=== PATIENT | female | born 1955 | race Caucasian/White ===

== ENCOUNTER 2018-05-18 20:23 | Inpatient (IN) | payer MEDICARE, OTHER ==
[~2018-05-18] VITALS: Ht 162.6 cm; Wt 77.6 kg
[~2018-05-18 20:23] MED LIST: ATOR80 PO; CEPH500 PO; FURO20 PO; IBUP800 PO; LEVSOD88 PO; LISI5 PO; NEBI5; NEBI5 PO; RXTRAM50 PO; TRAM50 PO; WARF5 PO
[2018-05-18] MEDS ORDERED: METO25ER PO (20:38)
[2018-05-18] MEDS ORDERED: Magnesium500 MG PO ×2 (20:40→23:40)
[2018-05-18] MEDS ORDERED: TURMERIC500 M2 PO (20:41)
[2018-05-18 20:56] LABS: BASOPHILS ABSOLUTE AUTO 0.05 K/mm3 (0.00-0.23); BASOPHILS PERCENT AUTO 1 % (0-2); EOSINOPHILS ABSOLUTE AUTO 0.24 K/mm3 (0.00-0.68); EOSINOPHILS PERCENT AUTO 2 % (0-6); Hematocrit 43.1 % (33.0-51.0); Hemoglobin 14.1 g/dL (11.5-16.0); IMMATURE GRAN ABSOLUTE AUTO 0.02 K/mm3 (0.00-0.10); IMMATURE GRAN PERCENT AUTO 0 % (0-1); LYMPHOCYTES ABSOLUTE AUTO 3.51 K/mm3 (0.84-5.20); LYMPHOCYTES PERCENT AUTO 35 % (21-46); MONOCYTES ABSOLUTE AUTO 0.92 K/mm3 (0.16-1.47); MONOCYTES PERCENT AUTO 9 % (4-13); Mean Corpuscular HGB 32.3 pg (26.0-34.0); Mean Corpuscular HGB Conc 32.7 g/dL (31.5-36.5); Mean Corpuscular Volume 99 fL (80-100); Mean Platelet Volume 9.6 fL (9.1-12.4); NEUTROPHILS PERCENT AUTO 53 % (41-73); Platelet Count 267 K/mm3 (150-400); RDW Coefficient Variation 12.4 % (11.7-14.2); Red Blood Cell Count 4.37 M/mm3 (3.80-5.20); White Blood Cell Count 10.04 K/mm3 (4.00-11.30)
[2018-05-18 21:11] LABS: Albumin, Blood 3.7 g/dL (3.4-5.0); Bilirubin, Total 0.3 mg/dL (0.1-1.0); Bun/Creatinine Ratio 11.7 (12.0-20.0); Calcium, Blood 9.7 mg/dL (8.5-10.1); Creatinine, Blood 1.2 mg/dL (0.40-1.00); Globulin, Blood 3.7 g/dL (2.2-4.0); Potassium, Blood 3.8 mmol/L (3.5-5.5); Total Protein, Blood 7.4 g/dL (6.4-8.2); Troponin I 0.024 ng/mL (0.000-0.040)
[2018-05-19 03:37] LABS: Bun/Creatinine Ratio 15.3 (12.0-20.0); Calcium, Blood 9.1 mg/dL (8.5-10.1); Creatinine, Blood 1.11 mg/dL (0.40-1.00); Potassium, Blood 3.9 mmol/L (3.5-5.5)
[2018-05-19 13:27] LABS: International Normalized Ratio 1.04; Prothrombin Time Results 10.7 Sec (9.7-11.5)
[2018-05-20 05:07] LABS: Albumin, Blood 3.2 g/dL (3.4-5.0); Anion Gap 8 mmol/L (6-16); Blood Urea Nitrogen 17 mg/dL (8-24); Bun/Creatinine Ratio 14.9 (12.0-20.0); CO2, Blood 26 mmol/L (21-32); Calcium, Blood 8.9 mg/dL (8.5-10.1); Chloride, Blood 111 mmol/L (98-108); Creatinine, Blood 1.14 mg/dL (0.40-1.00); Glomerular Filtration Rate 51 (60-); Glucose, Blood 80 mg/dL (70-99); Phosphorus, Blood 3.7 mg/dL (2.5-4.9); Potassium, Blood 4.4 mmol/L (3.5-5.5); Sodium, Blood 145 mmol/L (136-145)
[2018-05-20] MEDS ORDERED: Aspir-Trin325 MG PO (15:41)
[2018-05-20] MEDS ORDERED: FAMO20 PO (15:42)
[2018-05-20] MEDS ORDERED: CLOP75 PO (15:42)
== END 2018-05-20 16:54 | disposition home or self-care (01) | DRG 281 ==
LOC: ER 20:23 → MEDS 20:24 → PCU 05-19 12:26 → MEDS 05-19 12:27 → PCU 05-19 15:38
PROVIDERS: Emergency Medicine; Family Medicine; Nurse Practitioner Acute Care
PROC: B2111ZZ Fluoroscopy of Multiple Coronary Arteries using Low Osmolar Contrast (ICD-10-PCS; principal; 2018-05-19)
DX: I21.4 Non-ST elevation (NSTEMI) myocardial infarction (principal); I50.20 Unspecified systolic (congestive) heart failure; I13.0 Hypertensive heart and chronic kidney disease with heart failure and stage 1 through stage 4 chronic kidney disease, or unspecified chronic kidney disease; Z87.891 Personal history of nicotine dependence; Z95.5 Presence of coronary angioplasty implant and graft; E03.9 Hypothyroidism, unspecified; N18.3 Chronic kidney disease, stage 3 (moderate); Z85.3 Personal history of malignant neoplasm of breast; Z79.82 Long term (current) use of aspirin; I25.5 Ischemic cardiomyopathy; I25.119 Atherosclerotic heart disease of native coronary artery with unspecified angina pectoris; K57.90 Diverticulosis of intestine, part unspecified, without perforation or abscess without bleeding
CPT/HCPCS: 36415; 71046; 80048; 80053; 80069; 83880; 84484; 85025; 85610; 85730; 93005; 93010; 93454; 99152; 99153; 99285-25; C1769; C1894; C8929; J1644; J2250; J3010; J3246; J7030; Q9957; Q9967

== ENCOUNTER 2019-05-24 10:25 | Day surgery (SDC) | payer MEDICARE, OTHER ==
[~2019-05-24] VITALS: Ht 165.1 cm; Wt 77.7 kg
[~2019-05-24 10:25] MED LIST changes: +Aspir 8181 MG PO; +Aspir-Trin325 MG PO; +CLOP75 PO; +CO Q10100 MG PO; +FAMO20 PO; +METO25ER PO; +Magnesium500 MG PO; +NITR.4SL SL; +TUMERIC; +TURMERIC500 M2 PO; +[UNRECOGNIZED DRUG - OTHER] PO
--- NOTE | 2019-05-24 12:43 | NUR ---
PT ARRIVED BACK TO RECOVERY ROOM IN [facility]. RIGHT RADIAL SITE SOFT NON-TENDER WITH NO HEMATOMA AND NO PUSATILE BLEEDING AND WRIST BOARD IN PLACE. CALL LIGHT IN REACH. PT DENIES CHEST PAIN.
[2019-05-24] MEDS ORDERED: OMEPRAZOLE20 MG PO (13:42)
--- NOTE | 2019-05-24 13:46 | NUR ---
PT EATING LUNCH.
== END 2019-05-24 15:15 | disposition home or self-care (01) ==
LOC: MHTC 10:25
DX: I25.10 Atherosclerotic heart disease of native coronary artery without angina pectoris (principal); I25.2 Old myocardial infarction; E78.00 Pure hypercholesterolemia, unspecified; Z87.891 Personal history of nicotine dependence; Z88.5 Allergy status to narcotic agent; Z79.899 Other long term (current) drug therapy; Z88.0 Allergy status to penicillin
CPT/HCPCS: 93005; 93010; 93454; 99152; 99153; C1769; C1894; J1644; J2250; J3010; J7030; Q9967